=== PATIENT | male | born 1970 | race Caucasian/White ===

== ENCOUNTER 2017-11-03 21:01 | Emergency (ER) | payer BC ==
[2017-11-03] MEDS ORDERED: Ketorolac Tromethamine 60 MG/2 ML VIAL ONE (21:18)
== END 2017-11-03 22:00 | disposition home or self-care (01) ==
LOC: BURERS 21:01
DX: M25.511 Pain in right shoulder (principal); I10 Essential (primary) hypertension; Z79.899 Other long term (current) drug therapy
CPT/HCPCS: 96372; J1885

== ENCOUNTER → 2017-11-05 | Emergency (ER) | payer BC ==
[~2017-11-05] MED LIST: Ketorolac Tromethamine 30 MG/ML VIAL ONE; Lidocaine 1% 20 ML MDV ONE; Morphine 10 MG/ML VIAL ONE; diphenhydrAMINE 50 MG/ML VIAL ONE
[2017-11-05 08:04] LABS: ALT (SGPT) 33 U/L (8-55); AST (SGOT) 19 U/L (5-34); Albumin 4.4 g/dL (3.5-5.0); Alkaline Phosphatase 66 U/L (40-150); Anion Gap 16 mmol/L (10-20); BUN (Urea Nitrogen) 13 mg/dL (8.9-20.6); Calc. Creatinine Clearance 0 mL/min (70-130); Calcium 10.5 mg/dL (7.8-10.44); Carbon Dioxide 24 mmol/L (22-29); Chloride 99 mmol/L (98-107); Estimated GFR-MDRD 64; Globulin 3.6 g/dL (2.4-3.5); Glucose 156 mg/dL (70-105); Potassium 4.4 mmol/L (3.5-5.1); Sodium 135 mmol/L (136-145)
[2017-11-05 08:21] LABS: #Basophils 0.1 thou/uL (0.0-0.2); #Lymphocytes 0.5 thou/uL (1.20-3.40); #Monocytes 0.9 thou/uL (0.11-0.59); #Neutrophils 13.4 thou/uL (1.40-6.50); %Basophils 0.7 % (0.0-1.0); %Eosinophils 0.1 % (0.0-10.0); %Lymphocytes 3.5 % (21.0-51.0); %Monocytes 5.7 % (0.0-10.0); Hemoglobin 16.2 g/dL (14.0-18.0); Mean Corpuscular HGB CONC 36.4 g/dL (32.0-36.0); Mean Corpuscular Hemoglobin 29.5 pg (27.0-31.0); Mean Corpuscular Volume 80.9 fL (78.0-98.0); Mean Platelet Volume 6.8 fL (7.4-10.4); Platelet Count 199 thou/uL (130-400); RBC Distribution Width 11.4 % (11.5-14.5); Red Blood Cell (RBC) Count 5.51 mill/uL (4.70-6.10); White Blood Cell (WBC) Count 14.9 thou/uL (4.8-10.8)
--- NOTE | 2017-11-05 14:32 | RAD ---
RIGHT SHOULDER: Indication: Pain, swelling, fever. Comparison: 07-04-15 FINDINGS: There is no evidence of fracture or dislocation. 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 IMPRESSION: No acute osseous abnormality of the right shoulder. POS: [facility]
--- NOTE | 2017-11-05 14:33 | RAD ---
TWO VIEW CHEST: Comparison: None. Indication: Pain, swelling with fever. FINDINGS: The lungs are clear. No free air beneath the hemidiaphragms. Cardiac silhouette is upper limits of n ormal in size. Osseous structures are intact. IMPRESSION: No focal consolidation. POS: [facility]
== END ==
LOC: BURERS 07:12
DX: M00.9 Pyogenic arthritis, unspecified (principal); I10 Essential (primary) hypertension; Z79.899 Other long term (current) drug therapy
CPT/HCPCS: 20610; 36415; 71046; 80053; 83605; 85025; 87040; 87077; 87149; 87186; 93005; 94760; 96361; 96374; 96375; J1200; J1885; J2001; J2270

== ENCOUNTER 2018-01-05 14:40 | Emergency (ER) | payer BC | END 2018-01-05 15:03 | disposition home or self-care (01) | LOC: BURERS 14:40 | DX: B35.4 Tinea corporis (principal); I10 Essential (primary) hypertension; Z79.899 Other long term (current) drug therapy; Z79.82 Long term (current) use of aspirin | CPT/HCPCS: 99282 ==

== ENCOUNTER 2022-01-29 17:27 | Emergency (ER) | payer OTHER ==
[2022-01-29 18:40] LABS: #Lymphocytes 0.8 thou/uL (1.20-3.40); #Monocytes 0.6 thou/uL (0.11-0.59); #Neutrophils 9.8 thou/uL (1.40-6.50); %Basophils 0.4 % (0.0-1.0); %Lymphocytes 6.9 % (21.0-51.0); %Monocytes 5.6 % (0.0-10.0); Hemoglobin 16.7 g/dL (14.0-18.0); Mean Corpuscular HGB CONC 33.2 g/dL (32.0-36.0); Mean Corpuscular Hemoglobin 30.2 pg (27.0-31.0); Mean Corpuscular Volume 90.7 fL (78.0-98.0); Mean Platelet Volume 8.8 fL (7.4-10.4); Platelet Count 167 thou/uL (130-400); RBC Distribution Width 12.7 % (11.5-14.5); Red Blood Cell (RBC) Count 5.54 mill/uL (4.70-6.10); White Blood Cell (WBC) Count 11.3 thou/uL (4.8-10.8)
[2022-01-29] MEDS ORDERED: Acetaminophen 325 MG TAB ONE (18:45)
[2022-01-29] MEDS ORDERED: cefTRIAXone\\ROCEPHIN 2 GM VIAL ONE (18:47)
[2022-01-29 18:58] LABS: ALT (SGPT) 27 U/L (8-55); AST (SGOT) 22 U/L (5-34); Albumin 4.2 g/dL (3.5-5.0); Alkaline Phosphatase 68 U/L (40-110); Anion Gap 17 mmol/L (10-20); BUN (Urea Nitrogen) 15 mg/dL (8.9-20.6); Bilirubin, Total 1.2 mg/dL (0.2-1.2); Calc. Creatinine Clearance 0 mL/min (70-130); Calcium 9.3 mg/dL (7.8-10.44); Carbon Dioxide 22 mmol/L (22-29); Chloride 103 mmol/L (98-107); Estimated GFR 63; Globulin 3.1 g/dL (2.4-3.5); Glucose 106 mg/dL (70-105); Protein, Total 7.3 g/dL (6.0-8.3); Sodium 138 mmol/L (136-145)
[2022-01-29 19:14] LABS: Bilirubin Small (Negative); Blood, Urine Trace (Negative); Clarity Slightly Cloudy (Clear); Glucose, Urine (Dipstick) Negative (Negative); Ketone, Urine Trace mg/dL (Negative); Leukocyte Negative (Negative); Nitrite Negative (Negative); Protein, Urine (Dipstick) 30 mg/dL (Neg-Trace); Urobilinogen 0.2 mg/dL (Less than 2); pH, Urine 5.5 (5.0-9.0)
[2022-01-29 19:18] LABS: Specific Gravity, Urine 1.026 (1.002-1.036)
[2022-01-29 19:24] LABS: RBC/HPF 0-3 HPF (0-3); WBC/HPF None Seen HPF (0-3)
[2022-01-29 19:25] LABS: Bacteria/HPF Rare-Few HPF (None Seen); Mucous/LPF 1+ LPF (<2+); Squamous Epithelial None Seen HPF (0-3)
[2022-01-29] MEDS ORDERED: Ciprofloxacin 500 MG TAB ONE (20:29)
[2022-01-29] MEDS ORDERED: metroNIDAZOLE 250 MG TAB ONE (20:29)
[2022-01-29] MEDS ORDERED: Morphine 4 MG/ML VIAL ONE (21:08)
== END 2022-01-29 21:35 | disposition home or self-care (01) ==
LOC: BURERS 17:27
DX: K52.9 Noninfective gastroenteritis and colitis, unspecified (principal); I10 Essential (primary) hypertension
CPT/HCPCS: 36415; 71045; 74177; 80053; 81003; 81015; 83605; 83880; 84484; 85025; 87040; 87086; 93005; 96365; 96375; J0696; J2270